=== PATIENT | female | born 1965 | race Caucasian/White ===

== ENCOUNTER 2021-12-15 10:40 | Day surgery (SDC) | payer MEDICAID ==
[~2021-12-15] VITALS: Ht 172.7 cm; Wt 81.6 kg
[~2021-12-15 10:40] MED LIST: CEFAZOLIN SOD 2 GM in D5W 50 ML IV ONE
[2021-12-15] MEDS ORDERED: BUPIVACAINE /PF 0.25% 30 ML VIAL INJ ONE (13:44)
[2021-12-15] MEDS ORDERED: PROPOFOL 200MG/ 20ML VIAL (DIPRIVAN) IV ONE (13:44)
[2021-12-15] MEDS ORDERED: SUGAMMADEX SODIUM 200 MG/2 ML VIAL IV ONE (13:44)
[2021-12-15] MEDS ORDERED: DEXAMETHASONE SOD PHOSPHATE 4 MG/ML VIAL ONE (13:44)
[2021-12-15] MEDS ORDERED: ONDANSETRON HCL 4 MG/2 ML VIAL ONE (13:44)
[2021-12-15] MEDS ORDERED: KETOROLAC TROMETHAMINE 30 MG VIAL ONE (13:44)
[2021-12-15] MEDS ORDERED: fentaNYL CITRATE/PF 100 MCG/2 ML AMP ONE (13:44)
[2021-12-15] MEDS ORDERED: ROCURONIUM BROMIDE 10 MG/ML (ZEMURON) ONE (13:44)
[2021-12-15] MEDS ORDERED: LIDOCAINE 1% 10 MG/ML, 20 ML MDV ONE (13:44)
[2021-12-15] MEDS ORDERED: NS 1000 ML IV.SOLN IV ONE (13:44)
[2021-12-15] MEDS ORDERED: ISOFLURANE 15 MIN GAS INH ONE (13:44)
[2021-12-15] MEDS ORDERED: MIDAZOLAM HCL 5 MG/5 ML VIAL ONE (13:44)
[2021-12-15] MEDS ORDERED: NS IRRIG SOLN 1000 ML IR ONE (13:44)
[2021-12-15] MEDS ORDERED: LR 1,000 ML IV.SOLN IV ONE (13:44)
[2021-12-15] MEDS ORDERED: ACETAMINOPHEN I.V. 1000 MG 100 ML IV ONE (14:24)
[2021-12-15] MEDS ORDERED: LABETALOL 100 MG/ 20ML VIAL IVP PRN (14:30)
[2021-12-15] MEDS ORDERED: MIDAZOLAM HCL 2 MG/2 ML VIAL (VERSED) IVP PRN (14:30)
[2021-12-15] MEDS ORDERED: METOCLOPRAMIDE HCL 10 MG/2 ML VIAL IVP PRN (14:30)
[2021-12-15] MEDS ORDERED: MEPERIDINE HCL/PF 25 MG/ML DISP.SYRIN IVP PRN (14:30)
[2021-12-15] MEDS ORDERED: hydrALAZINE HCL 20 MG/ML VIAL IVP PRN (14:30)
[2021-12-15] MEDS ORDERED: LR 1,000 ML IV SCH (14:30)
[2021-12-15] MEDS ORDERED: HYDROmorphone 1 MG/ML INJ. CARTRIDGE IVP PRN ×2 (14:30)
[2021-12-15] MEDS: HYDROmorphone 1 MG/ML INJ. CARTRIDGE ONE ×3 (15:17→15:27)
[2021-12-15 17:51] VITALS: BP_SYST 118
== END 2021-12-15 17:50 | disposition home or self-care (01) ==
LOC: SDS 10:40 → SMU 10:41 → SDS 17:50
PROVIDERS: ATTEND Surgery
DX: K80.10 Calculus of gallbladder with chronic cholecystitis without obstruction (principal); K66.8 Other specified disorders of peritoneum; K21.9 Gastro-esophageal reflux disease without esophagitis; J45.909 Unspecified asthma, uncomplicated; G62.9 Polyneuropathy, unspecified; M19.90 Unspecified osteoarthritis, unspecified site; K58.9 Irritable bowel syndrome, unspecified
CPT/HCPCS: 36415; 47562; 88304; U0003; J3490 ×2; J0690; J1100; J1885; J2001; J2250; J2405; J2704; J3010; J1170; J7060; J7120; J7030; C1727; J0131